=== PATIENT | male | born 1985 | race Caucasian/White ===

== ENCOUNTER 2017-11-06 18:31 | Emergency (ER) | payer OTHER ==
[~2017-11-06] VITALS: Ht 172.7 cm; Wt 80.2 kg
[2017-11-06] MEDS ORDERED: SODIUM CHLORIDE 0.9% 1,000ML IVBOLUS ONE (19:00)
[2017-11-06] MEDS ORDERED: ONDANSETRON 2MG/ML, 2ML IVPush ONE (19:00)
[2017-11-06] MEDS ORDERED: SODIUM CHLORIDE FLUSH 10ML SYR IVF ONE (19:00)
[2017-11-06 19:25] LABS: HEMATOCRIT 50.3 % (39.2-51.8); HEMOGLOBIN 17.4 g/dL (13.7-18.0); WHITE BLOOD COUNT 8.1 x10^3/uL (3.4-10)
[2017-11-06] MEDS: HYDROmorphone 1 MG/ML, 1ML IVPush PRN ×2 (19:27→20:41)
[2017-11-06 19:45] LABS: ASPARTATE AMINO TRANSFERASE 21 U/L (15-37); BLOOD UREA NITROGEN 8 mg/dL (7-18)
[2017-11-06 22:20] VITALS: BP 119/80
== END 2017-11-06 22:22 | disposition home or self-care (01) ==
LOC: ED 21:26
DX: N13.2 Hydronephrosis with renal and ureteral calculous obstruction (principal); Z87.442 Personal history of urinary calculi
CPT/HCPCS: 36415; 74176; 76770; 80053; 81001; 85025; 87086; 96361; 96374; 96375; 96376; 99285; J1170; J2405; J7030

== ENCOUNTER 2019-12-08 03:46 | Emergency (ER) | payer OTHER ==
[~2019-12-08] VITALS: Ht 175.3 cm; Wt 80.4 kg
--- NOTE | 2019-12-08 04:09 | NUR ---
pt came in with friend, 2 bags of belongings to lock up. room as secure as possible.
--- NOTE | 2019-12-08 04:42 | NUR ---
PT STATED HE DIDNT TAKE THE 5 PILLS OF TRAZODONE 50MG. PT STATED HE "JUST WANTED TO SLEEP". DENIES SI/HI. sTATED HE F/U WITH DR MARTINEZ. BELONGINGS SECURED, EXPLAINED POC, LAB AT , UA CUP AT BS. NSR ON MONITORS, BED LOCKED LOW, CURTAIN OPEN SO THIS RN CAN KEEP EYES ON PT. CURRENTLY NO SI.
[2019-12-08 04:43] VITALS: BP 115/73
[2019-12-08 04:51] LABS: BASOPHILS # (AUTO) 0.04 x10^3/uL (0-0.1); BASOPHILS % (AUTO) 1 % (0-1); EOSINOPHILS # (AUTO) 0.17 x10^3/uL (0-0.4); EOSINOPHILS % (AUTO) 2 % (1-7); LYMPHOCYTES # (AUTO) 2.66 x10^3/uL (1-3.4); LYMPHOCYTES % (AUTO) 36 % (22-44); MD NO; MEAN CORPUSCULAR HEMOGLOBIN 28.1 pg (27.5-34.5); MEAN CORPUSCULAR HGB CONC 33.1 g/dL (33.2-36.2); MEAN CORPUSCULAR VOLUME 84.9 fL (81-97); MEAN PLATELET VOLUME 7.4 fL (7.4-10.4); MONOCYTES # (AUTO) 0.35 x10^3/uL (0.2-0.8); MONOCYTES % (AUTO) 5 % (2-9); NEUTROPHILS # (AUTO) 4.15 x10^3/uL (1.8-6.8); NEUTROPHILS % (AUTO) 56 % (42-75); PLATELET COUNT 255 x10^3/uL (130-400); RED BLOOD COUNT 5.36 x10^6/uL (4.38-5.82); RED CELL DISTRIBUTION WIDTH 13.3 % (9.4-14.8)
[2019-12-08 04:58] LABS: ALBUMIN 3.6 g/dL (3.4-5.0); ANION GAP 9 mmol/L (5-15); CHLORIDE 113 mmol/L (98-107); CREATININE 0.82 mg/dL (0.7-1.3); SALICYLATE LEVEL 2.1 mg/dL (2.8-20.0)
--- NOTE | 2019-12-08 05:42 | NUR ---
report to kobi yee. pt moved to 40
--- NOTE | 2019-12-08 05:54 | NUR ---
report from damari assumed care of ptat this time pt moved to rm 40 in nad friend at bedside, urine sent to lab at this time
[2019-12-08 06:13] LABS: AMPHETAMINE SCREEN, URINE Negative (Negative); BARBITURATE SCREEN, URINE Negative (Negative); BENZODIAZEPINE SCREEN, URINE Negative (Negative); CANNABINOID SCREEN, URINE Positive (Negative); COCAINE SCREEN, URINE Negative (Negative); METHADONE SCREEN, URINE Negative (Negative); OPIATE SCREEN, URINE Negative (Negative)
--- NOTE | 2019-12-08 06:52 | NUR ---
RECEIVED REPORT FROM KURT.
--- NOTE | 2019-12-08 07:17 | NUR ---
report given to SOC Dr Lujan, telemonitor [id number] in room.
--- NOTE | 2019-12-08 07:56 | NUR ---
pt lay on gurney with eyes closed, seen by telepsych- awaiting SO to return to ED for SOC to speak with, pt responds approp to staff, NAD, comfort measures provided, pt remains in safe envirnment, sitter in view.
--- NOTE | 2019-12-08 08:15 | NUR ---
telepsych completed, SOC spoke to Dr Poon re: dispo.
--- NOTE | 2019-12-08 08:38 | NUR ---
Patient given discharge instructions and they have confirmed that they understand the instructions. Patient ambulatory with steady gait.
== END 2019-12-08 08:44 ==
LOC: ED 05:38
DX: T43.211A Poisoning by selective serotonin and norepinephrine reuptake inhibitors, accidental (unintentional), initial encounter (principal); F32.9 Major depressive disorder, single episode, unspecified; Y92.89 Other specified places as the place of occurrence of the external cause
CPT/HCPCS: 36415; 80048; 80307; 82040; 85025; 99283; 99284